=== PATIENT | male | born 1940 | race Caucasian/White ===

== ENCOUNTER → 2021-01-29 10:06 | Outpatient (BNVA) | payer MEDICARE, SELFPAY | PROVIDERS: Family Provider Emergency Medicine Emergency Medical Services; Visit Provider Surgery | DX: Z20.822 Contact with and (suspected) exposure to COVID-19 (principal); Z11.52 Encounter for screening for COVID-19 | CPT/HCPCS: 87635 ==

== ENCOUNTER 2021-02-04 06:43 | Day surgery (SDC) | payer OTHER, SELFPAY ==
[2021-01-30 15:41] VITALS: BMI 19.1
--- NOTE | 2021-02-04 07:05 | ANES.PREANE2 ---
Pre-Anesthetic Assessment Pre-Anesthetic Assessment: Height/Weight: Height 1.85 m Weight 65.771 kg Preop Diagnosis: Blood in stool Proposed Procedure: Operation Date: 02/04/21 08:30 Proposed Procedures p EGD/colon [id number] K21.9 K92.1(Not Applicable) - Billy Brooks MD s Colonoscopy(Not Applicable) - Billy Brooks MD Familial anesthetic complications: None Was Beta Joselyn taken within 24 hours: N/A Was Clonidine taken within 24 hours: N/A Last intake: > 8 hrs Social: Social History: No alcohol and No tobacco Exam: Pre-Anes Outpt Exam: alert, oriented x 3, clear to auscultation bilaterally and regular rate & rhythm Airway: Cervical ROM: WNL MP: 4 Dentition: Full Additional comments: large tongue Pulmonary: Comments: hx Covid CV/HEM: CV/HEM: Angina (Stable) (atypical chest pain w/ sob - going on since 196, most recently 1 year ago) Comments: Stress test 2018 CONCLUSION: 1. No significant EKG changes with the LexiScan infusion. 2. No LexiScan induced chest pain or cardiac arrhythmia. 3. Normal blood pressure and heart rate response. 4. Sestamibi/sestamibi perfusion scan pending; see separate report. Sestamibi 2018 IMPRESSIONS 1. Very small perfusion abnormality of apical lateral wall is suggestive of attenuation artifact. 2. Overall left ventricular systolic function is normal without regional wall motion abnormalities, LVEF=75%. 3. No significant coronary ischemia based on this study. GI: GI: GERD Comments: Hx SBO w/ resection Anesthetic Plan: ASA status: 3 Anesthesia: MAC Risk of > 500 ml blood loss (7ml/kg in children): No PFSH Anesthesia PFSH: Social History Smoking and tobacco status: former smoker Second hand smoke exposure: No Alcohol intake: never Lives independently: Yes Data Anesthesia Cardiac Studies: No Data to Display
[2021-02-04 07:48] VITALS: BP 117/93; PULSE 69; RESP 16; TEMP 36.3; O2SAT 94
--- NOTE | 2021-02-04 08:03 | ECG_ITS ---
[facility] Test Date: 2021-02-04 Pat Name: Jonny Stapleton Department: Room: Gender: Male Warp Spinner: : 1940 Requested By: Pili Acosta Order Number: [id number] Gabbie MD: Radha Ibrahim M.D. Measurements Intervals [place] Rate: 64 P: 79 AR: 211 QRS: 69 QRSD: 98 T: 75 QT: 415 QTc: 430 Interpretive Statements SINUS RHYTHM WITH FIRST DEGREE AV BLOCK WITH FREQUENT VENTRICULAR PREMATURE COMPLEXES Nonspecific ST-T wave changes Compared to ECG 02/02/2019 12:19:34 Ventricular premature complex(es) now present First degree AV block now present ST (T wave) deviation now present Sinus bradycardia no longer present Electronically Signed On 02-04-2021 9:49:54 CDT by Radha bIrahim M.D. [email or web address] Biotechnologiesmemorial hospital.[email or web address]/[id number]
[2021-02-04] MEDS: sodium chloride 0.9% 1,000 ML 30 ML IV (08:16)
--- NOTE | 2021-02-04 10:04 | P.HP_ITS ---
Same Day Surgery H&P Indication for Procedure/HPI DATE OF PROCEDURE: February 04, 2021 CHIEF COMPLAINT/INDICATIONFOR SURGICAL PROCEDURE: Blood in stool PREOP DIAGNOSIS: Blood in stool PLANNED PROCEDRUE: Operation Date: 02/04/21 08:30 Proposed Procedures p EGD/colon [id number] K21.9 K92.1(Not Applicable) - Billy Brooks MD s Colonoscopy(Not Applicable) - Billy Brooks MD This is a pleasant 80 years old gentleman well-known to me from previous clinical encounter. As the patient undergone small bowel resection back in [address] Min. 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 Patient today is referred for history of blood in stool. Interim history 02/04/2021 Patient comes today for EGD and colonoscopy and was cleared per anesthesia for the procedure. ROS All systems have been reviewed negative except as per the above or per problem list. Medications/Allergies* Home Medications Medication Instructions Recorded Confirmed Type pantoprazole 40 mg tablet,delayed 40 mg PO DAILY 11/13/20 02/04/21 History release aloemaxlax 360 mg PO DAILY 01/21/21 02/04/21 History ascorbic acid (vitamin C) 500 mg 500 mg PO DAILY 01/21/21 02/04/21 History tablet cyanocobalamin (vitamin B-12) 2,500 mcg PO DAILY 01/21/21 02/04/21 History 2,500 mcg tablet grapefruit seed extract 250 mg PO DAILY 01/21/21 02/04/21 History potassium 99 mg PO BID 01/21/21 02/04/21 History vit d 3 25 mcg PO DAILY 01/21/21 02/04/21 History zinc 50 mg tablet 50 mg PO DAILY 01/21/21 02/04/21 History magnesium 250 mg PO DAILY 01/30/21 02/04/21 History pszhkqlfesuc-qjoamlam-ijuivu 1 tab PO DAILY 01/30/21 02/04/21 History [Multivitamin 50 Plus] Allergies/Adverse Reactions Allergy/AdvReac Type Severity Reaction Status Date / Time pain meds Allergy vomiting Uncoded 02/04/21 08:17 Current Medications: Generic Name Dose Route Start Last Admin Trade Name Freq PRN Reason Stop Dose Admin Sodium Chloride 1,000 mls @ 30 mls/hr 02/04/21 07:00 02/04/21 08:16 Sodium Chloride 0.9% IV 30 mls/hr .Q24H SUZY Administration Pertinent History/Comorbid Conditions* Social History Smoking and tobacco status: former smoker Second hand smoke exposure: No Alcohol intake: never Lives independently: Yes Pertinent Exam Findings alert, oriented x 3, clear to auscultation bilaterally, regular rate & rhythm and procedure specific exam findings (Abdominal exam patient nontender nondistended soft) Recommendations Surgery/Procedure today (EGD and colonoscopy with possible biopsy) Other Plans: Plan of care; After thorough history and physical examination and reviewing the chart, plan to perform a diagnostic esophagogastroduodenoscopy and diagnostic colonoscopy with possible biopsy and possible polypectomy. I discussed with the patient in detail the risks,benefits,alternatives and indications.The risk of aspiration, bleeding, soft tissue injury, perforation of the stomach/esophagus/colon and other potential concomitant complications were explained to the patient in details also the potential need for Thoracotomy and or Laproscoy/Laparotomy to repair any related complications including but not limited to colectomy and or Closotomy. The patient understood this well and did agree to proceed. Rationale was carefully and clearly discussed with the patient.Appropriate informed consent have been reviewed and signed Verbal and written Instructions were given to the patient for colonoscopy prep Coding Level of Care Code Acute Guard Entrance Registrar for Elaine Miranda
[2021-02-04 11:08] VITALS: BP 132/63; PULSE 57; RESP 16; TEMP 36.3; O2SAT 98
[2021-02-04 11:17] VITALS: BP 119/60; PULSE 59; RESP 16; O2SAT 96
--- NOTE | 2021-02-04 15:00 | ANE.PACU2 ---
Inpatient post-anesthesia follow up: Airway intact: Yes Vital signs: Temperature 97.3 F Pulse Rate 59 Respiratory Rate 16 Blood Pressure 119/60 Pulse Oximetry 96 Oxygen Delivery Me thod Room Air Oxygen Flow Rate Fraction of Inspir ed Oxygen Hydration adequate: Yes Nausea and vomiting: No Pain level: 1 Mental status: Baseline
== END 2021-02-04 11:35 | disposition home or self-care (01) ==
PROVIDERS: PCP Family Medicine; Visit Provider Surgery
PROC: 0DJ08ZZ Inspection of Upper Intestinal Tract, Via Natural or Artificial Opening Endoscopic (ICD-10-PCS; CPT 43235; principal; 2021-02-04 08:30)
PROC: 0DJD8ZZ Inspection of Lower Intestinal Tract, Via Natural or Artificial Opening Endoscopic (ICD-10-PCS; CPT 45378; 2021-02-04 08:30)
DX: K92.1 Melena (principal); D12.0 Benign neoplasm of cecum; Z90.49 Acquired absence of other specified parts of digestive tract; Z87.891 Personal history of nicotine dependence; Z86.16 Personal history of COVID-19
CPT/HCPCS: 43235; 45385; 88305; 93005; 96360; 96361; J2704; J7030

== ENCOUNTER → 2021-04-22 09:45 | Outpatient (BNVA) | payer OTHER, SELFPAY | PROVIDERS: PCP Family Medicine; Visit Provider Family Medicine | DX: K21.9 Gastro-esophageal reflux disease without esophagitis (principal); K92.1 Melena; R73.9 Hyperglycemia, unspecified | CPT/HCPCS: 80053; 80061; 84443; 85025 ==

== ENCOUNTER → 2022-07-06 09:18 | Outpatient (BNVA) | payer OTHER, SELFPAY | PROVIDERS: PCP Family Medicine; Visit Provider Family Medicine | DX: R39.9 Unspecified symptoms and signs involving the genitourinary system (principal) | CPT/HCPCS: 81003 ==

== ENCOUNTER → 2022-10-20 08:40 | Outpatient (BNVA) | payer MEDICARE, SELFPAY | PROVIDERS: PCP Family Medicine; Visit Provider Family Medicine | DX: N39.0 Urinary tract infection, site not specified (principal) | CPT/HCPCS: 81000 ==